=== PATIENT | male | born 1955 | race Caucasian/White ===

== ENCOUNTER → 2021-11-12 | Outpatient (CLI) | payer OTHER ==
[~2021-11-12] MED LIST: CYCLOBENZAPRINE5 M3 PO; PERCOCET 325 MG1 TA5 PO; VICODIN 5-3001 EACH PO
== END | disposition home or self-care (01) ==
LOC: CT 09:43
PROVIDERS: ATTEND Family Medicine
DX: J98.11 Atelectasis (principal); R91.1 Solitary pulmonary nodule